=== PATIENT | male | born 1980 | race Caucasian/White ===

== ENCOUNTER 2024-09-02 18:48 | Emergency (ER) | payer MEDICAID, SELFPAY ==
[2024-09-02 18:49] VITALS: BP 129/93; PULSE 101; RESP 15; TEMP 35.9; O2SAT 97; BMI 18.0
[2024-09-02 19:51] LABS: Bedside Glucose 127 mg/dL (74-106)
--- NOTE | 2024-09-02 20:21 | PCA ---
NO OLD EKG
[2024-09-02 20:26] LABS: Absolute Neutrophil Count 5.4 X10^3/uL (2.0-7.7); Basophil# 0.03 X10^3/uL; Basophil% 0.3 % (0-1); Eosinophil# 0.07 X10^3/uL; Eosinophils% 0.8 % (0-5); Hematocrit 44.1 % (40-54); Hemoglobin 15.7 g/dL (13.0-16.5); Lymphocyte % 30.5 % (19-41); Mean Corp Hgb Conc 35.6 g/dL (32-36); Mean Corpuscular Hgb 31.1 pg (27.0-32.0); Mean Corpuscular Volume 87.3 fL (80-94); Mean Platelet Vol. 10.1 fl (6.2-12.0); Monocyte# 0.61 X10^3/uL; Monocyte% 6.9 % (0-10); NRBC Flagged by Analyzer 0 % (0-5); Neutrophil # 5.41 X10^3/uL (2.7-7.7); Neutrophil % 61.3 % (47-70); Platelet Count 351 K/mm3 (150-450); RBC Distribution Width CV 12.2 % (11.6-14.6); Red Blood Count 5.05 M/mm3 (4.6-6.2); White Blood Count 8.8 K/mm3 (4.4-11.0)
[2024-09-02 20:38] LABS: Bacteria 0 SEEN /hpf (None Seen); Mucous, Urine 0 SEEN /hpf (<or=2+); Squamous Epithelial Cells - UA 0 SEEN /hpf (0-5)
[2024-09-02 20:42] LABS: Color, Urine Straw (Yellow); Glucose, Dipstick Normal (Normal); Ketone-Dipstick Negative (Negative); Leukocyte Esterase-Dipstick Negative /ul (Negative); Nitrite-Dipstick Negative (Negative); Occult Blood-Urine Negative /ul (Negative); Protein-Dipstick 30 mg/dl (Negative); Specific Gravity, Urine 1.015 (1.002-1.030); Urine Bilirubin Dipstick Negative (Negative); Urine Clarity Clear (Clear); Urine Urobilinogen Normal (Normal)
--- NOTE | 2024-09-02 20:45 | EX.ED.DYSGE1 ---
HPI History of Present Illness Chief Complaint: General Illness Informant: patient Narrative Narrative: Patient is a 44-year-old male who send past medical history does report tobacco use presenting with nausea, vomiting, diarrhea and concern for heat exhaustion. 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 States yesterday he felt he was going to pass out and could not do it anymore. He recently moved to the area and went home. He states has been having cramping in his hands and upper extremities. He is concerned he is dehydrated. . Notes that he still able to urinate but is a decreased urine output. Has been trying to push fluids at home but often times they come back up. Denies any associate abdominal pain. Came in for further evaluation. Does not have a primary care doctor [facility] Medical History Hx of drainage of abscess Home Medications ?Medication ?Instructions ?Recorded ?Last Taken ?Type NK 09/02/24 Unknown History Allergy/AdvReac Type Severity Reaction Status Date / Time No Known Allergies Allergy Verified 09/02/24 18:49 Social History Smoking Status: Unknown if ever smoked ROS ROS ED Constitutional Constitutional ED: Denies chills or fever(s) Cardiovascular Cardiovascular: Denies chest pain Respiratory/Chest Respiratory/Chest: Denies cough or dyspnea Gastrointestinal Gastrointestinal: Reports diarrhea, nausea and vomiting; Denies abdominal pain Genitourinary Genitourinary ED: Reports other Details: Decreased urine output ; Denies dysuria or hematuria Musculoskeletal Musculoskeletal: Reports myalgias; Denies arthralgias Integumentary Denies rash Neurologic Neurologic: Reports other Details: Lightheaded, near syncope EXAM Physical Exam Const Vital Signs: 09/02/24 18:49 09/02/24 19:54 09/02/24 21:32 Temperature 96.6 F L Temperature Source Temporal Pulse Rate 101 H Respiratory Rate 15 Respiratory Effort Normal Non-Labored Respiratory Pattern Normal Blood Pressure 129/93 H 120/85 H Blood Pressure Mean 105 96 Pulse Ox 97 Oxygen Delivery Method Room Air Positive well nourished and well developed Constitutional Narrative: Send General Appearance ED: well developed and NAD HEENT Reports moist mucous membranes Eyes PERRL and EOMs intact bilaterally General Eye ED: Negative for scleral icterus Neck supple Chest Wall inspection of chest normal and palpation of chest normal Resp normal respiratory effort and clear to auscultation bilaterally Cardio regular rate, regular rhythm and no murmurs GI normal to inspection, nondistended, normoactive bowel sounds and non-tender Palpation: soft; Negative for guarding Extremity normal to inspection General Extremety ED: Negative for edema General Extremity: Negative for edema Neuro oriented x3 Sensorium / Orientation: alert Motor Exam: Negative for general weakness Psych mental status grossly normal Skin no rashes or lesions noted Skin Narrative: Very tanned skin MDM MDM MDM Narrative Medical decision making narrative: Patient evaluated for concern of dehydration with associated lightheadedness, vomiting and diarrhea. 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 Upon arrival vital signs significant for mild tachycardia but otherwise normal. He currently denies abdominal pain and is requesting to eat as he does not feel nauseous right now. Will be given IV fluids. Differential includes dehydration, EWA, hypomagnesia , rhabdomyolysis, hypoglycemia, lower suspicion for pancreatitis or cholecystitis as he currently has no pain and is not complain of any nausea or vomiting at this moment. Will obtain EKG given the near syncope to make sure he does not have any cardiac arrhythmia or strain pattern. CBC unremarkable. BMP shows mild hyponatremia the sodium of 130, mild hypochloremia with chloride of 93 but otherwise normal. Normal magnesium. CK mildly elevated to 85 but not consistent with severe rhabdomyolysis. Urinalysis does not show any ketones. Kidney function is normal. Patient is given IV fluids in the ER. He is able to eat a sandwich. Is offered second liter of IV fluids but declines stated that he thinks that he can drink and eat at home. Is offered prescription for Zofran but declines. Is given dose of Toradol prior to discharge. Counseled on pushing oral hydration at home. He verbalized understand of this. Given outpatient follow-up instructions. Discharged home in stable condition. Lab Data Attestation: I reviewed the patient's lab results. Labs: Laboratory Results - last 24 hr 09/02/24 09/02/24 09/02/24 19:33 19:50 20:27 WBC 8.8 RBC 5.05 Hgb 15.7 Hct 44.1 MCV 87.3 MCH 31.1 MCHC 35.6 RDW Std Deviation 39.0 RDW Coeff of Otilio 12.2 Plt Count 351 MPV 10.1 Immature Gran % (Auto) 0.200 Neut % (Auto) 61.3 Lymph % (Auto) 30.5 [place] % (Auto) 6.9 Eos % (Auto) 0.8 Baso % (Auto) 0.3 Absolute Neuts (auto) 5.4 Absolute Lymphs (auto) 2.70 Nucleated RBC % 0 Sodium 130 L Potassium 3.3 Chloride 93 L Carbon Dioxide 21.8 Anion Gap 15 BUN 35 H Creatinine 1.20 Estim Creat Clear Calc 71.06 Est GFR (MDRD) Non-Af 76 BUN/Creatinine Ratio 29.1 H Glucose 120 H Calcium 9.7 Magnesium 2.0 Total Bilirubin 0.20 AST 37 ALT 32 Alkaline Phosphatase 125 Total Creatine Kinase 285 H Total Protein 7.6 Albumin 4.3 Globulin 3.3 Albumin/Globulin Ratio 1.3 Urine Color Straw Urine Clarity Clear Urine pH 6.0 Ur Specific [place] 1.015 Urine Protein 30 H Urine Glucose (UA) Normal Urine Ketones Negative Urine Occult Blood Negative Urine Nitrite Negative Urine Bilirubin Negative Urine Urobilinogen Normal Ur Leukocyte Esterase Negative Urine RBC 0-5 SEEN Urine WBC 0-5 SEEN Ur Squamous Epith Cells 0 SEEN Urine Bacteria 0 SEEN Urine Mucus 0 SEEN POC Glucose 127 H Rhythm Strip Rhythm Strip: Sinus Rhythm Rate: 80 Ectopy: None EKG Initial EKG: Attestation: I personally reviewed and interpreted this EKG as follows: Interpretation: Sinus Rhythm Comments: Normal sinus rhythm rate of 80 bpm Rightward axis Normal intervals Normal ST segment Discharge Plan Triage Chief Complaint: General Illness ED Provider: Janette Andujar Dx/Rx/DC Orders Clinical Impression: Acute dehydration, Rhabdomyolysis, Hyponatremia Instructions: ED Dehydration (Adult), ED Rhabdomyolysis Prescriptions: No Action NK Primary Care Provider: Care Physician,No Primary Referrals: Care Physician,No Primary [Primary Care Provider] - Prateek Fisher [facility] - Activity Restrictions/Additional Instructions: You may alternate ibuprofen and Tylenol at home. You are given a dose of Toradol tonight ibuprofen or other NSAIDs until tomorrow morning. You may take Tylenol tonight if you desire. Push fluids including your fluids that have electrolytes at home such as Gatorade. Follow-up with family doctor. You been given referral. Print Language: Luxembourger Disposition Disposition: Home, Self Care
[2024-09-02] MEDS: 0.9% Normal Saline (1000mL) 1,000 ML 999 ML IV (20:49)
[2024-09-02 21:18] LABS: ALB/GLOB Ratio 1.3 RATIO (0.9-2.4); AST(SGOT) 37 U/L (<=37); Alanine Aminotransfer ALT/SGPT 32 U/L (<=46); Albumin, Serum 4.3 g/dL (3.5-5.0); Alkaline Phosphatase 125 U/L (40-129); Anion Gap 15 (5-15); BUN 35 mg/dL (4-19); BUN/Creat Ratio 29.1 RATIO (10-20); Calcium,Total 9.7 mg/dL (7.6-11.0); Carbon Dioxide 21.8 mmol/L (21.0-32.0); Chloride 93 mmol/L (98-108); EST Glomerular Filtration Rate 76 (>60); Estimated Creatinine Clearance 71.06 ml/min (50-250); Globulin 3.3 g/dL (2.2-4.2); Glucose 120 mg/dL (70-99); Potassium 3.3 mmol/L (3.3-5.1); Protein, Total 7.6 g/dL (5.9-8.4); Sodium Level 130 mmol/L (133-145)
[2024-09-02 21:22] LABS: CPK Total, Creatine Kinase 285 U/L (24-195)
[2024-09-02 21:32] VITALS: BP 120/85
[2024-09-02 22:19] LABS: Red Blood Cells-Urine 0-5 SEEN /hpf (0-5); White Blood Cells 0-5 SEEN /hpf (0-5)
[2024-09-02] MEDS: Ketorolac 15 MG/ML Vial IV (23:13)
[2024-09-02 23:14] VITALS: BP 120/75; PULSE 75; RESP 16; TEMP 36.7; O2SAT 100
== END 2024-09-02 23:16 | disposition home or self-care (01) ==
PROVIDERS: Emergency Provider Emergency Medicine; Referring Provider Emergency Medicine; Visit Provider Emergency Medicine
DX: E86.0 Dehydration (principal); E87.1 Hypo-osmolality and hyponatremia; F17.200 Nicotine dependence, unspecified, uncomplicated; E87.8 Other disorders of electrolyte and fluid balance, not elsewhere classified; M62.82 Rhabdomyolysis
CPT/HCPCS: 80053; 81001; 82550; 82962; 83735; 85025; 93005; 96361; 96374; 99283; A4216